=== PATIENT | male | born 1975 | race African-American/Black ===

== ENCOUNTER 2017-06-24 19:38 | Emergency (ER) | payer MEDICAID, OTHER ==
[2017-06-24 19:47] VITALS: BP 129/89
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
[2017-06-24] MEDS ORDERED: ONDANSETRON 4 MG TAB.RAPDIS PO ONE (21:07)
[2017-06-24] MEDS ORDERED: BUTALB/ACETAMINOPHEN/CAFFEINE 1 TAB EACH PO ONE (21:08)
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
== END 2017-06-24 21:33 | disposition home or self-care (01) ==
LOC: ER 19:38
DX: R51 Headache (principal); R42 Dizziness and giddiness; R11.10 Vomiting, unspecified; V43.52XA Car driver injured in collision with other type car in traffic accident, initial encounter
CPT/HCPCS: 99284; 70450; J3490; S0119

== ENCOUNTER → 2018-11-07 | Outpatient (CLI) | payer BC ==
[2018-11-07 17:23] LABS: HEMATOCRIT 40.4 % (37.9-51.0); HEMOGLOBIN 13.5 g/dL (13.5-17.0); MEAN CORPUSCULAR HEMOGLOBIN 30.9 pg (27.0-33.4); MEAN CORPUSCULAR HGB CONC 33.4 g/dL (32.0-36.0); MEAN CORPUSCULAR VOLUME 93 fl (80-97); PLATELET COUNT 194 10^3/uL (150-450); RED BLOOD COUNT 4.36 10^6/uL (4.35-5.55); RED CELL DISTRIBUTION WIDTH 13.6 % (11.5-14.0); WHITE BLOOD COUNT 7.7 10^3/uL (4.0-10.5)
== END ==
LOC: LAB 17:15
PROVIDERS: ATTEND Internal Medicine Gastroenterology
DX: K62.5 Hemorrhage of anus and rectum (principal)
CPT/HCPCS: 36415; 85027; 86140

== ENCOUNTER → 2019-08-06 | Outpatient (CLI) | payer BC ==
[2019-08-06 15:29] LABS: ABSOLUTE LYMPHOCYTES (AUTO) 1.5 10^3/uL (0.5-4.7); ABSOLUTE MONOCYTES (AUTO) 0.5 10^3/uL (0.1-1.4); ABSOLUTE NEUT (AUTO) 4.1 10^3/uL (1.7-8.2); BASOPHILS % (AUTO) 0.7 % (0-2); EOSINOPHILS % (AUTO) 0.6 % (0-6); HEMATOCRIT 40.6 % (37.9-51.0); HEMOGLOBIN 13.8 g/dL (13.5-17.0); LYMPHOCYTES % (AUTO) 24.3 % (13-45); MEAN CORPUSCULAR HEMOGLOBIN 32.5 pg (27.0-33.4); MEAN CORPUSCULAR VOLUME 96 fl (80-97); MONOCYTES % (AUTO) 8.3 % (3-13); PLATELET COUNT 199 10^3/uL (150-450); RED BLOOD COUNT 4.24 10^6/uL (4.35-5.55); RED CELL DISTRIBUTION WIDTH 14.3 % (11.5-14.0); SEGMENTED NEUTROPHILS % (AUTO) 66.1 % (42-78); TOTAL CELLS COUNTED % (AUTO) 100 %; WHITE BLOOD COUNT 6.2 10^3/uL (4.0-10.5)
[2019-08-06 15:49] LABS: ALBUMIN 4.2 g/dL (3.5-5.0); ALKALINE PHOSPHATASE 57 U/L (38-126); ANION GAP 7 (5-19); ASPARTATE AMINO TRANSFERASE 30 U/L (17-59); BILIRUBIN,DIRECT 0.2 mg/dL (0.0-0.4); BILIRUBIN,TOTAL 0.3 mg/dL (0.2-1.3); BLOOD UREA NITROGEN 14 mg/dL (7-20); CALCIUM 9.3 mg/dL (8.4-10.2); CARBON DIOXIDE 28 mmol/L (22-30); CHLORIDE 102 mmol/L (98-107); GLUCOSE 97 mg/dL (75-110); TOTAL PROTEIN 7.7 g/dL (6.3-8.2)
[2019-08-06 15:59] LABS: CREATINE KINASE MB 1.69 ng/mL (<4.55)
[2019-08-06 16:02] LABS: TROPONIN I < 0.012 ng/mL
== END ==
LOC: OD 14:30
PROVIDERS: ATTEND Physician Assistant
DX: R42 Dizziness and giddiness (principal); R07.9 Chest pain, unspecified
CPT/HCPCS: 36415; 80053; 82553; 84443; 84484; 85025

== ENCOUNTER → 2019-08-14 | Outpatient (CLI) | payer BC ==
[2019-08-14 14:58] LABS: ABSOLUTE LYMPHOCYTES (AUTO) 1.1 10^3/uL (0.5-4.7); ABSOLUTE MONOCYTES (AUTO) 0.6 10^3/uL (0.1-1.4); ABSOLUTE NEUT (AUTO) 3.8 10^3/uL (1.7-8.2); BASOPHILS % (AUTO) 0.4 % (0-2); EOSINOPHILS % (AUTO) 0.6 % (0-6); HEMATOCRIT 41.3 % (37.9-51.0); HEMOGLOBIN 14.2 g/dL (13.5-17.0); LYMPHOCYTES % (AUTO) 20.1 % (13-45); MEAN CORPUSCULAR HEMOGLOBIN 32.8 pg (27.0-33.4); MEAN CORPUSCULAR HGB CONC 34.4 g/dL (32.0-36.0); MEAN CORPUSCULAR VOLUME 95 fl (80-97); MONOCYTES % (AUTO) 10.9 % (3-13); PLATELET COUNT 196 10^3/uL (150-450); RED BLOOD COUNT 4.34 10^6/uL (4.35-5.55); RED CELL DISTRIBUTION WIDTH 13.7 % (11.5-14.0); TOTAL CELLS COUNTED % (AUTO) 100 %; WHITE BLOOD COUNT 5.5 10^3/uL (4.0-10.5)
[2019-08-14 15:19] LABS: ALBUMIN 4.4 g/dL (3.5-5.0); ALKALINE PHOSPHATASE 53 U/L (38-126); ANION GAP 7 (5-19); ASPARTATE AMINO TRANSFERASE 24 U/L (17-59); BILIRUBIN,DIRECT 0.2 mg/dL (0.0-0.4); BILIRUBIN,TOTAL 0.4 mg/dL (0.2-1.3); BLOOD UREA NITROGEN 9 mg/dL (7-20); CALCIUM 9.7 mg/dL (8.4-10.2); CARBON DIOXIDE 26 mmol/L (22-30); CHLORIDE 104 mmol/L (98-107); GLUCOSE 101 mg/dL (75-110); POTASSIUM 4.2 mmol/L (3.6-5.0); TOTAL PROTEIN 7.6 g/dL (6.3-8.2)
== END ==
LOC: OD 14:05
PROVIDERS: ATTEND Physician Assistant
DX: K52.9 Noninfective gastroenteritis and colitis, unspecified (principal); R10.30 Lower abdominal pain, unspecified; K62.5 Hemorrhage of anus and rectum; R11.0 Nausea
CPT/HCPCS: 36415; 80053; 83690; 85025

== ENCOUNTER 2019-08-15 06:04 | Emergency (ER) | payer BC ==
[2019-08-15 06:41] LABS: ABSOLUTE EOSINOPHILS # (AUTO) 0.1 10^3/uL (0.0-0.6); ABSOLUTE LYMPHOCYTES (AUTO) 0.9 10^3/uL (0.5-4.7); ABSOLUTE MONOCYTES (AUTO) 0.7 10^3/uL (0.1-1.4); ABSOLUTE NEUT (AUTO) 5.6 10^3/uL (1.7-8.2); BASOPHILS % (AUTO) 0.4 % (0-2); EOSINOPHILS % (AUTO) 1.2 % (0-6); HEMOGLOBIN 14.3 g/dL (13.5-17.0); LYMPHOCYTES % (AUTO) 12.6 % (13-45); MEAN CORPUSCULAR HEMOGLOBIN 33.3 pg (27.0-33.4); MEAN CORPUSCULAR HGB CONC 34.9 g/dL (32.0-36.0); MEAN CORPUSCULAR VOLUME 95 fl (80-97); MONOCYTES % (AUTO) 8.9 % (3-13); PLATELET COUNT 203 10^3/uL (150-450); RED CELL DISTRIBUTION WIDTH 13.5 % (11.5-14.0); SEGMENTED NEUTROPHILS % (AUTO) 76.9 % (42-78); TOTAL CELLS COUNTED % (AUTO) 100 %; WHITE BLOOD COUNT 7.3 10^3/uL (4.0-10.5)
[2019-08-15 07:01] LABS: ALBUMIN 4.2 g/dL (3.5-5.0); ALKALINE PHOSPHATASE 56 U/L (38-126); ANION GAP 7 (5-19); ASPARTATE AMINO TRANSFERASE 22 U/L (17-59); BILIRUBIN,TOTAL 0.6 mg/dL (0.2-1.3); BLOOD UREA NITROGEN 6 mg/dL (7-20); CALCIUM 9.5 mg/dL (8.4-10.2); CARBON DIOXIDE 22 mmol/L (22-30); CHLORIDE 108 mmol/L (98-107); GLUCOSE 100 mg/dL (75-110); POTASSIUM 3.8 mmol/L (3.6-5.0); TOTAL PROTEIN 7.4 g/dL (6.3-8.2)
[2019-08-15] MEDS ORDERED: METHYLPREDNISOLONE INJ 125 MG/2 ML SDV IV ONE (07:17)
[2019-08-15] MEDS ORDERED: DICYCLOMINE HCL 20 MG TABLET PO ONE (07:17)
--- NOTE | 2019-08-15 07:35 | ER Document Report ---
Entered by NICHOLAS PULIDO SCRIBE 08/15/19 0642 Acting as scribe for:SERVANDO CORBETT DO ED GI/ - General Chief Complaint: Abdominal Pain Stated Complaint: ABDOMINAL PAIN/BLOOD IN STOOL Time Seen by Provider: 08/15/19 06:34 Primary Care Provider: GABRIELLA CAN PA [Primary Care Provider] - Follow up as needed Mode of Arrival: Ambulatory Information source: Patient Notes: This 43 year old male patient presents to the emergency department today with complaints of his "colitis acting up". Patient states he was diagnosed with ulcerative colitis approximately six months ago after a colonoscopy, states he was started on mesalamine for this. Patient states his abdominal pain has been well controlled since being put on this medication, until two days ago. Patient reports cramping abdominal pain x2 days with associated nausea. Patient states he has also noticed bright red blood on toilet paper when wiping. Patient denies any vomiting, cough, fevers, or recent travel. TRAVEL OUTSIDE OF THE [place] IN LAST 30 DAYS: No - Related Data Allergies/Adverse Reactions: shrimp Allergy (Verified 08/15/19 06:07) Home Medications: mesalamine Past Medical History - General Information source: Patient - Social History Smoking Status: Former Smoker Cigarette use (# per day): No Frequency of alcohol use: None Drug Abuse: None Lives with: Family Family History: Reviewed & Not Pertinent Patient has suicidal ideation: No Patient has homicidal ideation: No Pulmonary Medical History: Reports: Hx Asthma GI Medical History: Reports: Hx Ulcerative Colitis Surgical Hx: Negative - Immunizations Hx Diphtheria, Pertussis, Tetanus Vaccination: Yes Review of Systems - Review of Systems Constitutional: denies: Fever EENT: No symptoms reported Cardiovascular: No symptoms reported Respiratory: denies: Cough Gastrointestinal: See HPI, Abdominal pain, Nausea, Rectal bleeding. denies: Vomiting Genitourinary: No symptoms reported Male Genitourinary: No symptoms reported Musculoskeletal: No symptoms reported Skin: No symptoms reported Hematologic/Lymphatic: No symptoms reported Neurological/Psychological: No symptoms reported -: Yes All other systems reviewed and negative Physical Exam - Vital signs Vitals: Temp Pulse Resp BP Pulse Ox 98.1 F 69 16 131/86 H 98 08/15/19 06:07 08/15/19 06:07 08/15/19 06:07 08/15/19 06:07 08/15/19 06:07 - Notes Notes: Physical Exam: General: Alert, appears well. HEENT: Normocephalic. Atraumatic. PERRL. Extraocular movements intact. Oropharynx clear. Neck: Supple. Non-tender. Respiratory: No respiratory distress. Clear and equal breath sounds bilaterally. Cardiovascular: Regular rate and rhythm. Abdominal: Normal Inspection. Non-tender. No distension. Normal Bowel Sounds. Back: No gross abnormalities. Extremities: Moves all four extremities. Upper extremities: Normal inspection. Normal ROM. Lower extremities: Normal inspection. No edema. Normal ROM. Neurological: Normal cognition. AAOx4. Normal speech. Psychological: Normal affect. Normal Mood. Skin: Warm. Dry. Normal color. Course - Re-evaluation Re-evalutation: 08/15/19 08:03 MDM 43 year old male with h/o Ulcerative colitis by endoscopy takes mesalamine and has been compliant he reports. No fever. Generalized abd pain and bloody stool. No chest pain or sob and exam here is benign and labs are reassuring. He has a local GI doctor. - Vital Signs Vital signs: Temp Pulse Resp BP Pulse Ox 97.8 F 84 18 133/88 H 99 08/15/19 09:35 08/15/19 09:35 08/15/19 09:35 08/15/19 09:35 08/15/19 09:35 - Laboratory Result Diagrams: 08/15/19 06:30 08/15/19 06:30 Laboratory results interpreted by me: 08/15/19 08/15/19 06:30 06:30 RBC 4.30 L Lymph % (Auto) 12.6 L Sodium 136.6 L Chloride 108 H BUN 6 L Discharge - Discharge Clinical Impression: Hematochezia Ulcerative colitis Qualifiers: Ulcerative colitis location: unspecified ulcerative colitis location Digestive disease complication type: unspecified complication Qualified Code(s): K51.919 - Ulcerative colitis, unspecified with unspecified complications Condition: Good Disposition: HOME, SELF-CARE Instructions: Abdominal Pain ([facility]), Antispasmodics ([facility]) Additional Instructions: Clear liquid diet for 24 hours. Medicines as directed. Please return here for any problems or any concerns including but not limited to abdominal pain, fever or persistent vomiting. Call your GI doctor today to schedule follow up. Prescriptions: Dicyclomine HCl [Bentyl 20 mg Tablet] 20 mg PO QID #40 tablet Prednisone 10 mg PO 12 #1 tab.ds.pk Forms: Return to Work Referrals: GABRIELLA CAN PA [Primary Care Provider] - Follow up as needed I personally performed the services described in the documentation, reviewed and edited the documentation which was dictated to the scribe in my presence, and it accurately records my words and actions.
[2019-08-15] MEDS ORDERED: METHYLPREDNISOLONE INJ 125 MG/2 ML SDV IM ONE (07:41)
[2019-08-15 09:36] VITALS: BP 133/88
== END 2019-08-15 09:35 | disposition home or self-care (01) ==
LOC: ER 06:04
DX: K51.919 Ulcerative colitis, unspecified with unspecified complications (principal); K92.1 Melena; R10.9 Unspecified abdominal pain; R11.0 Nausea; Z79.899 Other long term (current) drug therapy; Z88.8 Allergy status to other drugs, medicaments and biological substances; Z87.891 Personal history of nicotine dependence; J45.909 Unspecified asthma, uncomplicated
CPT/HCPCS: 99284; 96372; 36415; 83605; 83690; 85025; 80053; J3490; J2930

== ENCOUNTER 2019-09-25 12:54 | Emergency (ER) | payer BC ==
--- NOTE | 2019-09-25 13:14 | ER Document Report ---
ED Medical Screen (RME) - General Chief Complaint: Abdominal Pain Stated Complaint: ABDOMINAL PAIN Time Seen by Provider: 09/25/19 13:07 Primary Care Provider: SILVIO BROOKS MD [Primary Care Provider] - Follow up as needed Mode of Arrival: Ambulatory Information source: Patient Notes: 44-year-old male with history of colitis presents emergency department with complaints of vomiting twice on Monday. He reports he had been drinking cranberry juice but his fiance thought it was blood that he vomited. He also continues to complain of abdominal pain. Reports he feels better than he did when he came in on August. He reports it feels like something "is going on in there", pointing to his abdomen. He has been evaluated and treated by Dr. Banks last week. Patient reports he has been eating drinking smaller meals but normal and reports last bowel movement was this morning normal. I have greeted and performed a rapid initial assessment of this patient. A comprehensive ED assessment and evaluation of the patient, analysis of test results and completion of the medical decision making process will be conducted by additional ED providers. TRAVEL OUTSIDE OF THE [place] IN LAST 30 DAYS: No - Related Data Allergies/Adverse Reactions: shrimp Allergy (Verified 09/25/19 13:07) Past Medical History Pulmonary Medical History: Reports: Hx Asthma Renal/ Medical History: Denies: Hx Peritoneal Dialysis GI Medical History: Reports: Hx Ulcerative Colitis - Immunizations Hx Diphtheria, Pertussis, Tetanus Vaccination: Yes Physical Exam - Vital signs Vitals: Temp Pulse Resp BP Pulse Ox 98.4 F 88 16 118/73 97 09/25/19 13:00 09/25/19 13:00 09/25/19 13:00 09/25/19 13:00 09/25/19 13:00 Course - Vital Signs Vital signs: Temp Pulse Resp BP Pulse Ox 98.4 F 88 16 118/73 97 09/25/19 13:00 09/25/19 13:00 09/25/19 13:00 09/25/19 13:00 09/25/19 13:00 Doctor's Discharge - Discharge Referrals: SILVIO BROOKS MD [Primary Care Provider] - Follow up as needed
[2019-09-25 14:13] LABS: ABSOLUTE LYMPHOCYTES (AUTO) 1.6 10^3/uL (0.5-4.7); ABSOLUTE MONOCYTES (AUTO) 0.5 10^3/uL (0.1-1.4); ABSOLUTE NEUT (AUTO) 5.7 10^3/uL (1.7-8.2); BASOPHILS % (AUTO) 0.6 % (0-2); EOSINOPHILS % (AUTO) 0.5 % (0-6); HEMATOCRIT 40.3 % (37.9-51.0); HEMOGLOBIN 13.9 g/dL (13.5-17.0); LYMPHOCYTES % (AUTO) 19.9 % (13-45); MEAN CORPUSCULAR HGB CONC 34.5 g/dL (32.0-36.0); MEAN CORPUSCULAR VOLUME 96 fl (80-97); MONOCYTES % (AUTO) 6.4 % (3-13); PLATELET COUNT 211 10^3/uL (150-450); RED BLOOD COUNT 4.21 10^6/uL (4.35-5.55); RED CELL DISTRIBUTION WIDTH 13.8 % (11.5-14.0); SEGMENTED NEUTROPHILS % (AUTO) 72.6 % (42-78); TOTAL CELLS COUNTED % (AUTO) 100 %; WHITE BLOOD COUNT 7.8 10^3/uL (4.0-10.5)
[2019-09-25] MEDS: DICYCLOMINE HCL 20 MG TABLET PO ONE ×2 (14:16→14:21)
[2019-09-25 14:20] LABS: APPEARANCE,URINE CLEAR; BILIRUBIN,URINE NEGATIVE (NEGATIVE); COLOR,URINE YELLOW; GLUCOSE, URINE NEGATIVE (NEGATIVE); KETONES,URINE 20 mg/dL (NEGATIVE); LEUKOCYTE ESTERASE,URINE NEGATIVE (NEGATIVE); NITRITE,URINE NEGATIVE (NEGATIVE); PROTEIN,URINE NEGATIVE (NEGATIVE); URINE SPECIFIC GRAVITY 1.029
--- NOTE | 2019-09-25 14:27 | ER Document Report ---
ED GI/ - General Chief Complaint: Abdominal Pain Stated Complaint: ABDOMINAL PAIN Time Seen by Provider: 09/25/19 13:07 Primary Care Provider: SILVIO BROOKS MD [Primary Care Provider] - Follow up as needed Mode of Arrival: Ambulatory Information source: Patient Notes: Patient states that 2 days ago he had been drinking cranberry juice and then vomited. Patient states that his was concerned there may have been blood in his emesis although he is not certain that it just was not for the cranberry juice. Patient states since then he has not had any additional vomiting. Patient states he is not had any blood in his stool or dark-colored stools. Pat ient denies any abdominal tenderness lightheadedness or dizziness. Patient denies any fever. Patient states that he has a history of ulcerative colitis and his became concerned when she saw the color of his emesis 2 days ago. Patient states that his primary doctor advised him to come to the hospital for further evaluation. TRAVEL OUTSIDE OF THE [place] IN LAST 30 DAYS: No - HPI Patient complains to provider of: Vomiting - 2 days ago x1 episode. No: Abdominal pain Timing/Duration: Better Quality of pain: No pain Pain Level: Denies Associated symptoms: Vomiting. denies: Blood in stool, Chest pain, Coffee ground emesis, Nausea, Urinary hesitancy, Urinary frequency, Urinary retention, Urinary urgency Exacerbated by: Denies Relieved by: Denies Similar symptoms previously: No Recently seen / treated by doctor: No - Related Data Allergies/Adverse Reactions: shrimp Allergy (Verified 09/25/19 13:07) Past Medical History - General Information source: Patient - Social History Smoking Status: Current Every Day Smoker Chew tobacco use (# tins/day): No Frequency of alcohol use: Occasional Drug Abuse: None Occupation: Dietary Lives with: Family Family History: Reviewed & Not Pertinent Patient has homicidal ideation: No Pulmonary Medical History: Reports: Hx Asthma Renal/ Medical History: Denies: Hx Peritoneal Dialysis GI Medical History: Reports: Hx Ulcerative Colitis Past Surgical History: Reports: Other - Foreign body removal - Immunizations Hx Diphtheria, Pertussis, Tetanus Vaccination: Yes Review of Systems - Review of Systems Constitutional: No symptoms reported. denies: Fever EENT: No symptoms reported Cardiovascular: No symptoms reported. denies: Chest pain, Dizziness, Lightheaded Respiratory: No symptoms reported. denies: Cough Gastrointestinal: Vomiting. denies: Abdominal pain, Nausea Genitourinary: No symptoms reported Male Genitourinary: No symptoms reported Musculoskeletal: No symptoms reported Skin: No symptoms reported Hematologic/Lymphatic: No symptoms reported Neurological/Psychological: No symptoms reported Physical Exam - Vital signs Vitals: Temp Pulse Resp BP Pulse Ox 98.4 F 88 16 118/73 97 09/25/19 13:00 09/25/19 13:00 09/25/19 13:00 09/25/19 13:00 09/25/19 13:00 - General General appearance: Appears well, Alert In distress: None - HEENT Head: Normocephalic, Atraumatic Eyes: Normal Conjunctiva: Normal Nasal: Normal Mouth/Lips: Normal Mucous membranes: Normal Neck: Normal, Supple. No: Lymphadenopathy - Respiratory Respiratory status: No respiratory distress Chest status: Nontender Breath sounds: Normal. No: Rales, Rhonchi, Stridor, Wheezing Chest palpation: Normal - Cardiovascular Rhythm: Regular Heart sounds: S1 appreciated, S2 appreciated - Abdominal Inspection: Normal Distension: No distension Bowel sounds: Normal Tenderness: Nontender Organomegaly: No organomegaly - Back Back: Normal, Nontender. No: CVA tenderness - Extremities General upper extremity: Normal inspection, Normal strength General lower extremity: Normal inspection, Normal strength - Neurological Neuro grossly intact: Yes Cognition: Normal [place] Coma Scale Eye Opening: Spontaneous [place] Coma Scale Verbal: Oriented [place] Coma Scale Motor: Obeys Commands [place] Coma Scale Total: 15 - Psychological Associated symptoms: Normal affect, Normal mood - Skin Skin Temperature: Warm Skin Moisture: Dry Skin Color: Normal Course - Re-evaluation Re-evalutation: 09/25/19 14:26 Attempted to call patient's primary doctor for consultation, call placed alcohol still operator for Dr. Brooks. 09/25/19 15:[address] Brooks regarding patient presentation and diagnostic evaluation. Dr. Brooks states that he had that conversation suspecting the patient would have come in yesterday or the day before. He does not recommend any additional testing at this time as patient is without any symptoms and without any nausea or vomiting since having one episode of vomiting [address] Brooks was advised that patient was uncertain whether or not he had vomited blood or just cranberry juice as he had been drinking cranberry juice prior to the episode of emesis. - Vital Signs Vital signs: Temp Pulse Resp BP Pulse Ox 97.6 F 68 16 130/83 H 100 09/25/19 15:55 09/25/19 15:55 09/25/19 15:55 09/25/19 15:55 09/25/19 15:55 - Laboratory Result Diagrams: 09/25/19 13:30 09/25/19 13:30 Laboratory results interpreted by me: 09/25/19 09/25/19 13:30 13:30 RBC 4.21 L Urine Ketones 20 H Urine Urobilinogen 2.0 H Urine Ascorbic Acid 40 H 09/25/19 20:18 Labs- Entire Visit 09/25/19 09/25/19 09/25/19 13:30 13:30 13:30 WBC 7.8 RBC 4.21 L Hgb 13.9 Hct 40.3 MCV 96 MCH 33.0 MCHC 34.5 RDW 13.8 Plt Count 211 Lymph % (Auto) 19.9 Mcintosh % (Auto) 6.4 Eos % (Auto) 0.5 Baso % (Auto) 0.6 Absolute Neuts (auto) 5.7 Absolute Lymphs (auto) 1.6 Absolute Monos (auto) 0.5 Absolute Eos (auto) 0.0 Absolute Basos (auto) 0.0 Seg Neutrophils % 72.6 Sodium 138.6 Potassium 4.1 Chloride 105 Carbon Dioxide 25 Anion Gap 9 BUN 14 Creatinine 0.81 Est GFR ( Amer) > 60 Est GFR (MDRD) Non-Af > 60 Glucose 76 Calcium 9.5 Total Bilirubin 0.3 Direct Bilirubin 0.0 Neonat Total Bilirubin Not Reportable Neonat Direct Bilirubin Not Reportable Neonat Indirect Bili Not Reportable AST 26 ALT 16 Alkaline Phosphatase 50 Total Protein 7.4 Albumin 4.3 Lipase 103.8 Urine Color YELLOW Urine Appearance CLEAR Urine pH 6.0 Ur Specific [place] 1.029 Urine Protein NEGATIVE Urine Glucose (UA) NEGATIVE Urine Ketones 20 H Urine Blood NEGATIVE Urine Nitrite NEGATIVE Urine Bilirubin NEGATIVE Urine Urobilinogen 2.0 H Ur Leukocyte Esterase NEGATIVE Urine WBC (Auto) 2 Urine RBC (Auto) 2 Squamous Epi Cells Auto 1 Urine Mucus (Auto) MOD Urine Ascorbic Acid 40 H Discharge - Discharge Clinical Impression: Normal exam Condition: Stable Disposition: HOME, SELF-CARE Additional Instructions: Return immediately for any new or worsening symptoms Followup with your primary care provider, call tomorrow to make a followup appointment Follow-up with your inspector precision assembly for recheck Referrals: SILVIO BROOKS MD [Primary Care Provider] - Follow up as needed
[2019-09-25 14:32] LABS: ALBUMIN 4.3 g/dL (3.5-5.0); ALKALINE PHOSPHATASE 50 U/L (38-126); ANION GAP 9 (5-19); ASPARTATE AMINO TRANSFERASE 26 U/L (17-59); BILIRUBIN,TOTAL 0.3 mg/dL (0.2-1.3); BLOOD UREA NITROGEN 14 mg/dL (7-20); CALCIUM 9.5 mg/dL (8.4-10.2); CARBON DIOXIDE 25 mmol/L (22-30); CHLORIDE 105 mmol/L (98-107); GLUCOSE 76 mg/dL (75-110); POTASSIUM 4.1 mmol/L (3.6-5.0); TOTAL PROTEIN 7.4 g/dL (6.3-8.2)
[2019-09-25 15:55] VITALS: BP 130/83
== END 2019-09-25 15:57 | disposition home or self-care (01) ==
LOC: ER 12:54
DX: R11.10 Vomiting, unspecified (principal); F17.200 Nicotine dependence, unspecified, uncomplicated; J45.909 Unspecified asthma, uncomplicated; Z87.19 Personal history of other diseases of the digestive system
CPT/HCPCS: 36415; 80053; 81001; 83690; 85025; 99283; J3490

== ENCOUNTER 2019-10-02 04:13 | Emergency (ER) | payer BC | END 2019-10-02 05:15 | disposition left against medical advice (07) | LOC: ER 04:13 | DX: Z53.21 Procedure and treatment not carried out due to patient leaving prior to being seen by health care provider (principal) ==

== ENCOUNTER 2020-05-10 20:44 | Emergency (ER) | payer BC ==
--- NOTE | 2020-05-10 20:58 | ER Document Report ---
HPI - HPI Time Seen by Provider: 05/10/20 20:51 Context: Patient is a 44-year-old male who presents to the emergency department with a chief complaint of right facial droop. Patient states that he also has had right ear pain for the past few days. Patient noticed that he started to have some numbness on the right side of his face. Denies any arm or leg weakness. 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 - ROS Systems Reviewed and Negative: Yes All other systems reviewed and negative - CONSTITUTIONAL Constitutional: DENIES: Fever, Chills - EENT EENT: REPORTS: Ear Pain Notes: Right-sided facial droop. Inability to raise right eyebrow. - NEURO Neurology: DENIES: Headache, Weakness, Vision blurred - RESPIRATORY Respiratory: DENIES: Trouble Breathing, Coughing - GASTROINTESTINAL Gastrointestinal: DENIES: Abdominal Pain, Nausea, Patient vomiting - REPRODUCTIVE Reproductive: DENIES: : - MUSCULOSKELETAL Musculoskeletal: DENIES: Extremity pain, Neck Pain - DERM Skin Color: Normal Past Medical History - General Information source: Patient - Social History Smoking Status: Unknown if Ever Smoked Family History: Reviewed & Not Pertinent Pulmonary Medical History: Reports: Hx Asthma Renal/ Medical History: Denies: Hx Peritoneal Dialysis GI Medical History: Reports: Hx Ulcerative Colitis Past Surgical History: Reports: Other - Foreign body removal - Immunizations Hx Diphtheria, Pertussis, Tetanus Vaccination: Yes Vertical Provider Document - CONSTITUTIONAL Agree With Documented VS: Yes Exam Limitations: No Limitations General Appearance: No Apparent Distress - INFECTION CONTROL TRAVEL OUTSIDE OF THE [place] IN LAST 30 DAYS: No - HEENT HEENT: Atraumatic, Normocephalic, PERRLA, Tympanic Membrane Red - Right. negative: Conjuctival Injection, Pharyngeal Tenderness, Pharyngeal Erythema Notes: Asymmetric forehead and labial fold with right-sided droop. Consistent with Mantilla's palsy. - NECK Neck: Normal Inspection, Supple - RESPIRATORY Respiratory: Breath Sounds Normal, No Respiratory Distress - CARDIOVASCULAR Cardiovascular: Regular Rate, Regular Rhythm Pulses: Normal: Radial - MUSCULOSKELETAL/EXTREMETIES Musculoskeletal/Extremeties: FROM - NEURO Level of Consciousness: Awake, Alert, Appropriate Motor/Sensory: No Motor Deficit, No Sensory Deficit, No Pronator Drift - DERM Integumentary: Warm, Dry, No Rash Course - Re-evaluation Re-evalutation: 01/03/21 21:00 Presentation is most consistent with a Mantilla's palsy. Patient has complete involvement including of the forehead. No additional focal neurologic deficits. Presentation and exam are not consistent with an acute stroke. Patient has been started on prednisone and acyclovir. An eye patch has been provided. The patient has been encouraged to follow closely with his primary care physician and return for any new or worsening symptoms. They verbalized understanding and will be discharged at this time. - Laboratory Results Critical Laboratory Results Reviewed: No Critical Results - Radiology Results Critical Radiology Results Reviewed: No Critical Results Discharge - Discharge Clinical Impression: Right ear pain, Mantilla's palsy Otitis media Qualifiers: Otitis media type: suppurative Chronicity: acute Laterality: right Recurrence: not specified as recurrent Spontaneous tympanic membrane rupture: without spontaneous rupture Qualified Code(s): H66.001 - Acute suppurative otitis media without spontaneous rupture of ear drum, right ear Condition: Stable Disposition: HOME, SELF-CARE Instructions: Mantilla's Palsy ([facility]), Steroid Medication Additional Instructions: [place] Palsy You have been diagnosed as having Mantilla's Palsy -- a paralysis of certain muscles of the face. It's caused by a temporary paralysis of the nerve which controls the muscles. The cause is unknown, but it's thought to be caused by a virus in most cases. The physician's exam shows that this is NOT a stroke. Mantilla's Palsy usually gets better by itself. There is no cure. Sometimes cortisone-type medication is given to decrease nerve swelling. This problem is usually temporary, lasting about three weeks. During that time, you must protect the eye from injury (because the eyelid muscles often do not cover it). Ointment or a patch may be necessary. Be sure to follow up as instructed, and call the doctor at once if new symptoms arise. Report any eye pain, decreasing vision or double vision, or any numbness or weakness outside the face area. Otitis Media You have a middle ear infection (otitis media). This is usually a complication of a cold or sore throat. The middle ear cavity becomes filled with infection. Pressure and stretching of the ear drum cause pain. Antibiotics are required. A 10 day course is usually prescribed. A decongestant may be recommended if you have a "runny nose." You may need anesthetic drops or other pain medication. A follow-up exam may be recommended to make sure the infection has completely cleared. If the ear begins to drain, it means the ear drum has ruptured. This will usually heal spontaneously. However, it means you should keep the ear dry until re-examined by a doctor. Call the physician or return for examination at once if there is severe headache, stiff neck, confusion, increasing fever, or dizziness. You should improve significantly within two days. If you're not better, call the doctor. Prescriptions: Acyclovir [Acyclovir 400 mg Tablet] 400 mg PO TID 10 Days #30 tablet Amoxicillin Trihydrate [Amoxil 500 mg Capsule] 500 mg PO TID #30 cap Prednisone [Deltasone 20 mg Tablet] 20 tab PO ASDIR 5 Days #21 tablet Forms: Return to Work Referrals: SHELLEY MAX MD [ACTIVE STAFF] - Follow up in 3-5 days
[2020-05-10] MEDS ORDERED: PREDNISONE 20 MG TABLET PO ONE (21:07)
[2020-05-10] MEDS ORDERED: AMOXICILLIN TRIHYDRATE 500 MG CAPSULE PO ONE (21:07)
[2020-05-10 21:10] VITALS: BP 110/73
== END 2020-05-10 22:35 | disposition home or self-care (01) ==
LOC: ER 20:44
DX: G51.0 Bell's palsy (principal); H66.001 Acute suppurative otitis media without spontaneous rupture of ear drum, right ear; R20.0 Anesthesia of skin
CPT/HCPCS: 99283; J7512